=== PATIENT | female | born 1995 | race Caucasian/White ===

== ENCOUNTER 2024-04-23 05:52 | Emergency (ER) | payer BC ==
--- NOTE | 2024-04-23 06:16 | ED ---
Lower Extremity Injury HPI - General Chief Complaint: Extremity Injury, Lower Stated Complaint: R Ankle Injury-19 weeks preg. Time Seen by Provider: 04/23/24 06:10 Source: patient, RN notes reviewed Mode of arrival: wheelchair Limitations: no limitations - History of Present Illness Initial Comments: This is a 32-year-old female presenting for right ankle injury 1 hour ago. Patient states that she rolled her ankle while stepping down the final step as she left for work. Patient endorses walking immediately after incident. States she is unable to bear weight at this time. Patient currently rates pain 7 out of 10. Patient denies striking head, neck injury, loss of consciousness. Patient endorses currently being 19 weeks . Patient endorses taking Tylenol for headache prior to incident this morning. Patient denies loss of sensation or motor function in right foot. Patient states that she has an anterior placenta is yet to feel movement. Denies concern for injury. MD Complaint: ankle injury Onset/Timin -: hour(s) Injury: Ankle: Right Place: street/outdoors Severity scale (1-10): 7 Worsens With: weight bearing Context: fall - Related Data Allergies Allergy/AdvReac Type Severity Reaction Status Date / Time No Known Allergies Allergy Verified 04/23/24 05:56 Review of Systems ROS Statement: Those systems with pertinent positive or pertinent negative responses have been documented in the HPI. ROS Other: All systems not noted in ROS Statement are negative. Past Medical History Past Medical History: No Reported History History of Any Multi-Drug Resistant Organisms: None Reported Past Surgical History: Adenoidectomy, Tonsillectomy Past Psychological History: No Psychological Hx Reported Smoking Status: Never smoker Past Alcohol Use History: Rare Past Drug Use History: None Reported General Exam Limitations: no limitations General appearance: alert, in no apparent distress Head exam: Present: atraumatic, normocephalic, normal inspection Eye exam: Present: normal appearance, PERRL, EOMI. Absent: scleral icterus, conjunctival injection, periorbital swelling ENT exam: Present: normal exam, mucous membranes moist Neck exam: Present: normal inspection. Absent: tenderness, meningismus, lymphadenopathy Respiratory exam: Present: normal lung sounds bilaterally. Absent: respiratory distress, wheezes, rales, rhonchi, stridor Cardiovascular Exam: Present: regular rate, normal rhythm, normal heart sounds. Absent: systolic murmur, diastolic murmur, rubs, gallop, clicks GI/Abdominal exam: Present: soft, normal bowel sounds. Absent: distended, tenderness, guarding, rebound, rigid Extremities exam: Present: normal inspection (Right foot motor function normal. Sensory normal in all dermatomes. Capillary refill less than 2 seconds.), full ROM, tenderness (Positive right distal tip/fib tenderness. Negative erythema, ecchymosis, crepitus, deformity. Negative navicular or fifth metatarsal tenderness or crepitus.), normal capillary refill, joint swelling (Positive moderate lateral right ankle edema.). Absent: pedal edema, calf tenderness Back exam: Present: normal inspection Neurological exam: Present: alert, oriented X3, CN II-XII intact Psychiatric exam: Present: normal affect, normal mood Skin exam: Present: warm, dry, intact, normal color. Absent: rash Course Vital Signs 04/23/24 05:57 Temperature 98.1 F Pulse Rate 90 Respiratory 17 Rate Blood Pressure 111/78 O2 Sat by Pulse 98 Oximetry Medical Decision Making - Medical Decision Making Was pt. sent in by a medical professional or institution (, PA, [employer], urgent care, hospital, or skilled nursing...) When possible be specific @ -No Did you speak to anyone other than the patient for history (EMS, parent, family, police, friend...)? What history was obtained from this source @ -No Did you review nursing and triage notes (agree or disagree)? Why? @ -I reviewed and agree with nursing and triage notes Were old charts reviewed (outside hosp., previous admission, EMS record, old EKG, old radiological studies, urgent care reports/EKG's, skilled nursing records)? Report findings @ -No old charts were reviewed Differential Diagnosis (chest pain, altered mental status, abdominal pain women, abdominal pain men, vaginal bleeding, weakness, fever, dyspnea, syncope, headache, dizziness, GI bleed, back pain, seizure, CVA, palpatations, mental health, musculoskeletal)? @ -Ankle sprain, tibial fracture, fibula fracture, ankle dislocation EKG interpreted by me (3pts min.). @ -None X-rays interpreted by me (1pt min.). @ -Right ankle x-ray: Right lateral ankle soft tissue edema. Negative obvious fracture, dislocation. CT interpreted by me (1pt min.). @ -None done U/S interpreted by me (1pt. min.). @ -None done What testing was considered but not performed or refused? (CT, X-rays, U/S, labs)? Why? @ -None What meds were considered but not given or refused? Why? @ -None Did you discuss the management of the patient with other professionals (professionals i.e. DrAlexander, PA, [employer], lab, RT, psych nurse, addiction social worker, chalk cutter, teacher, ground intelligence officer, pillowcase turner)? Give summary @ -No Was smoking cessation discussed for >3mins.? @ -No Was critical care preformed (if so, how long)? @ -No Were there social determinants of health that impacted care today? How? (Homelessness, low income, unemployed, alcoholism, drug addiction, transportat ion, low edu. Level, literacy, decrease access to med. care, longterm, rehab)? @ -No Was there de-escalation of care discussed even if they declined (Discuss DNR or withdrawal of care, Hospice)? DNR status @ -No What co-morbidities impacted this encounter? (DM, HTN, Smoking, COPD, CAD, Cancer, CVA, ARF, Chemo, Hep., AIDS, mental health diagnosis, sleep apnea, morbid obesity)? @ - Was patient admitted / discharged? Hospital course, mention meds given and route, prescriptions, significant lab abnormalities, going to OR and other pertinent info. @ -Discharge. Right ankle x-ray performed. Ankle Naveen wrapped and cold compress provided. Undiagnosed new problem with uncertain prognosis? @ -No Drug Therapy requiring intensive monitoring for toxicity (Heparin, Nitro, Insulin, Cardizem)? @ -No Were any procedures done? @ -No Diagnosis/symptom? @ -Grade 1 ankle sprain Acute, or Chronic, or Acute on Chronic? @ -Acute Uncomplicated (without systemic symptoms) or Complicated (systemic symptoms)? @ -Uncomplicated Side effects of treatment? @ -No Exacerbation, Progression, or Severe Exacerbation? @ -No Poses a threat to life or bodily function? How? (Chest pain, [place], [place], pneumonia, PE, COPD, DKA, ARF, appy, cholecystitis, CVA, Diverticulitis, Homicidal, Suicidal, threat to staff... and all critical care pts) @ -No Disposition Clinical Impression: Sprain and strain of ankle Disposition: HOME SELF-CARE Condition: Good Is patient prescribed a controlled substance at d/c from ED?: No Referrals: Zack Kate MD [Primary Care Provider] - 1-2 days Time of Disposition: 07:10
--- NOTE | 2024-04-23 07:10 | XR ---
EXAM: XR Right Ankle Complete, 3 or More Views CLINICAL HISTORY: Right ankle injury. Fall off a step TECHNIQUE: Frontal, lateral and oblique views of the right ankle. COMPARISON: No relevant prior studies available. FINDINGS: Bones/joints: No evidence of acute fracture. No dislocation. Ankle mortise is preserved. Soft tissues: Unremarkable. IMPRESSION: There is no evidence of acute fracture or dislocation.
[2024-04-23 07:46] VITALS: BP 149/84; PULSE 82; RESP 18; TEMP 98.4
== END 2024-04-23 07:46 | disposition home or self-care (01) ==
LOC: EC 05:52